=== PATIENT | female | born 1965 | race Caucasian/White ===

== ENCOUNTER → 2016-04-05 | Outpatient (CLI) | payer BC ==
[~2016-04-05] MED LIST: BCPILLS PO; FLX10 PO
--- NOTE | 2016-04-05 11:37 | DIAGNOSTIC IMAGING REPORT ---
RIGHT KNEE 1 OR 2 VIEWS ROUTINE CLINICAL HISTORY: Right knee pain. COMPARISON: Right knee radiographs December 25, 2006. FINDINGS: Alignment of the right knee is anatomic. No acute fracture or suspicious lesion is present. There is mild osteophytosis of the right knee. Irregularity of the proximal shaft of the right tibia is chronic. There is no definite joint effusion IMPRESSION: 1. No acute fracture. 2. Mild osteoarthritis of the right knee. Electronically signed by: Alin Zabala M.D. 04/05/2016 11:36 AM Dictated Date/Time: 04/05/2016 11:35 AM
== END | disposition home or self-care (01) ==
LOC: C.RAD 11:03
PROVIDERS: ATTEND Family Medicine
DX: M25.561 Pain in right knee (principal); M17.9 Osteoarthritis of knee, unspecified

== ENCOUNTER → 2016-04-11 | Outpatient (CLI) | payer BC ==
--- NOTE | 2016-04-11 10:52 | DIAGNOSTIC IMAGING REPORT ---
MRI OF THE RIGHT KNEE CLINICAL HISTORY: Right knee pain. COMPARISON STUDY: Radiographs of the right knee dated 04/05/2016. TECHNIQUE: MRI of the right knee was performed utilizing proton density, T1, and T2-weighted sequences in the axial, sagittal, coronal planes. IV contrast was not administered for this examination. The examination is significantly degraded by large body habitus which were acquired using the head coil. FINDINGS: Menisci: There is likely degenerative intrasubstance tearing involving the body of the medial meniscus which is medially extruded. The lateral meniscus is grossly intact. Ligaments: The anterior and posterior cruciate ligaments are intact. The medial and lateral collateral ligaments are within normal limits. Extensor mechanism: The extensor mechanism is intact. Hoffa's fat pad is normal in appearance. Articular cartilage and bone: There is mild chondromalacia patella, with approximately 50% thinning of the articular cartilage. There is greater than 50% fissuring of the articular cartilage near the patellar apex with mild associated reactive marrow edema. There is mild (less than 50%) degenerative thinning of the articular cartilage along the weightbearing surface in the medial compartment. Articular cartilage of the lateral compartment appears preserved. Marrow signal is heterogeneous. Marginal osteophytes are identified, as are patellar enthesophytes. There is no evidence of fracture. A small bone island is noted in the lateral femoral condyle. Joint effusion: There is trace joint effusion. Soft tissues: The musculature surrounding the knee joint demonstrates symmetric atrophy. No intramuscular edema is identified. IMPRESSION: 1. The examination is degraded by large body habitus which necessitated using the head coil. 2. 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 3. Additional arthritic changes as above. 4. There is likely degenerative intrasubstance tearing involving the body of the medial meniscus which is medially extruded. 5. There is no evidence of ligamentous injury. 6. Trace joint effusion. Electronically signed by: Sukhwinder Colindres M.D. 04/11/2016 10:51 AM Dictated Date/Time: 04/11/2016 10:44 AM
== END | disposition home or self-care (01) ==
LOC: C.MRI 09:24
PROVIDERS: ATTEND Family Medicine
DX: M25.561 Pain in right knee (principal)